=== PATIENT | female | born 1990 | race Caucasian/White ===

== ENCOUNTER 2019-04-29 09:16 | Emergency (ER) | payer SELFPAY ==
[2019-04-29 09:23] VITALS: BP 104/65; PULSE 65; RESP 16; TEMP 36.7; O2SAT 99
--- NOTE | 2019-04-29 09:31 | ED.URI ---
HPI - URI/Sore Throat General Chief Complaint: Upper Respiratory Infection Stated Complaint: Sore Throat Time Seen by Provider: 04/29/19 09:31 Source: patient and RN notes reviewed History of Present Illness HPI Narrative: Patient is a 28-year-old female presents the urgent care with complaints of sore throat for 1 day. Patient states she has a history of strep throat but has not had strep within the last 6 months. Patient has not used anything [id number] for her symptoms. Denies any known fever, chills, nausea, vomiting. No other acute complaints. No acute distress noted. Patient read the plan of care. Related Data Allergies Allergy/AdvReac Type Severity Reaction Status Date / Time No Known Allergies Allergy Mild Verified 03/28/19 13:07 Review of Systems Review of Systems: Narrative: CONSTITUTIONAL: Denies fever, chills, or sweats. EYES: Denies visual changes, redness, or discharge. ENT: Reports of sore throat CARDIOVASCULAR: Denies chest pain, palpitations, or edema. RESPIRATORY: Denies cough or dyspnea. GASTROINTESTINAL: Denies abdominal pain, nausea, vomiting, or diarrhea. GENITOURINARY: Denies dysuria or hematuria. SKIN: Denies rash or itching. MUSCULOSKELETAL: Denies back pain, joint pain, or myalgia. NEUROLOGIC: Denies headache, numbness, or weakness. All other systems reviewed are negative, except as documented in HPI. [facility] Social History Social History Gender identity (if verbalized by the patient): Female Comments At the time of my signature, I reviewed and agree with the nursing past medical, surgical, social, and family history. There is no relevant family history pertinent to the patient complaint. Exam Narrative: Exam Narrative: GENERAL: This is a well-nourished, well-developed patient, in no apparent distress. HEAD: normocephalic, atraumatic. EYES: PERRL. Sclera clear/white. Vision is grossly intact. EARS: External ears normal, auditory canals clear and without drainage, TMs normal without perforation. Hearing grossly intact. NOSE: External nose normal with no obvious nasal discharge, nares without redness, no rhinorrhea. THROAT: Mucous membranes moist, moderate erythema noted posterior oropharynx without exudate or ulceration. NECK: Neck supple, non-tender without lymphadenopathy CARDIOVASCULAR: Regular rate and rhythm without murmurs, gallops, or rubs. RESPIRATORY: Clear to auscultation. Breath sounds equal bilaterally. No wheezes, rales, or rhonchi. SKIN: warm, intact with no suspicious lesions or rash, good texture and turgor. NEURO: awake, alert, and oriented to person, place and time. There were no obvious focal neurologic abnormalities. EXTREMITIES: No clubbing, cyanosis, or edema. Course Vital Signs Vital signs: Vital Signs Temperature 98.0 F 04/29/19 09:23 Pulse Rate 65 04/29/19 09:23 Respiratory Rate 16 04/29/19 09:23 Blood Pressure 104/65 04/29/19 09:23 Pulse Oximetry 99 04/29/19 09:23 Temperature 98.0 F 04/29/19 09:23 Pulse Rate 65 04/29/19 09:23 Respiratory Rate 16 04/29/19 09:23 Blood Pressure 104/65 04/29/19 09:23 Pulse Oximetry 99 04/29/19 09:23 Reviewed MDM - URI/Sore Throat MDM Narrative Medical decision making narrative: Reviewed lab results with the patient. She is aware that strep swab was positive. Advised the patient to complete antibiotic regimen as prescribed. Make sure to eat and drink with medication. Increase fluids and rest. Use humidifier at night. Change toothbrush within 2 to 3 days. Use Tylenol/ibuprofen as needed for fever pain. Follow-up with PCP within 2 to 5 days or for worsening symptoms or failure to improve. Differential Diagnosis Differential diagnosis: Likely upper respiratory infection, otitis media, sinusitis, viral infection, bronchitis, influenza and pharyngitis Lab Data Attestation: I reviewed the patient's lab results. Critical Care Time Critical Care Time Critical Care Time: No Discharge Plan
== END 2019-04-29 09:40 | disposition home or self-care (01) ==
PROVIDERS: Emergency Provider Nurse Practitioner Family
DX: J02.0 Streptococcal pharyngitis (principal)
CPT/HCPCS: 87880; 99213; G0463

== ENCOUNTER 2020-10-02 15:04 | Emergency (ER) | payer SELFPAY ==
[2020-10-02 15:07] VITALS: BP 130/83; PULSE 106; RESP 18; TEMP 36.9; O2SAT 98
--- NOTE | 2020-10-02 15:17 | ECG_ITS ---
Measurements Intervals [place] Rate: 101 P: 65 MO: 118 QRS: 56 QRSD: 83 T: -3 QT: 346 QTc: 450 Interpretive Statements SINUS TACHYCARDIA WITH SHORT MO INTERVAL NONSPECIFIC ST & T-WAVE ABNORMALITY- ANTEROLAT/INF LEADS BORDERLINE ECG Electronically Signed On 10-02-2020 17:07:38 CDT by Bola Oneal D.O.
[2020-10-02 15:30] LABS: Basophils Absolute Auto 0.1 K/mm3 (0.0-0.1); Basophils Percent Auto 0.4 % (0.2-1.2); Eosinophils Percent Auto 0.3 % (0-4.4); Hematocrit 35.8 % (37.0-47.0); Hemoglobin 12.1 g/dL (12.0-15.0); Immature Granulocyte Absolute 0.03 K/mm3 (0.00-0.031); Immature Granulocyte Percent A 0.2 % (0-0.5); Lymphocytes Absolute Auto 1.68 K/mm3 (0.9-3.2); Lymphocytes Percent Auto 12.1 % (18.3-44.2); Mean Corpuscular HGB Conc 33.8 g/dl (32-36); Mean Corpuscular Hemoglobin 28.5 pg (26-34); Mean Corpuscular Volume 84.4 fl (80-100); Mean Platelet Volume 10.6 fl (7.4-10.4); Monocytes Absolute Auto 0.6 K/mm3 (0.1-0.6); Monocytes Percent Auto 4.5 % (2.6-8.5); Neutrophils Absolute Auto 11.5 K/mm3 (1.3-6.7); Neutrophils Percent Auto 82.5 % (45.5-73.1); Platelet Count Result 244 k/mm3 (150-375); Red Blood Count 4.24 M/mm3 (4.2-5.4); Red Cell Distribution Width 13.3 % (11.5-14.5); White Blood Count 13.9 K/mm3 (4.5-10.0)
--- NOTE | 2020-10-02 15:38 | ED.SYNCOPE ---
HPI - Syncope General Chief Complaint: Syncope Stated Complaint: syncope, possible seizure Time Seen by Provider: 10/02/20 15:18 History of Present Illness HPI narrative: [place] was at an outdoor street [place] this afternoon when she passed out. She did have brief light headedness before this. She struck her head on a trash can in the fall. She has a moderate headache at this time. Additionally she reports that she just found out she was . She had a normal period last month. Related Data Home Medications Medication Instructions Recorded Confirmed No Home Medications 10/02/20 10/02/20 Allergies Allergy/AdvReac Type Severity Reaction Status Date / Time No Known Allergies Allergy Mild Verified 10/02/20 15:09 Review of Systems Review of Systems: All systems reviewed & are unremarkable except as noted in HPI and below Constitutional: Constitutional: Denies chills and Denies fever(s) Eyes: Eyes: Reports no additional eye complaints Cardiovascular: Cardiovascular: Denies chest pain Respiratory: Respiratory: Denies dyspnea Gastrointestinal: Gastrointestinal: Denies abdominal pain, Denies diarrhea, Reports nausea and Denies vomiting Genitourinary: Genitourinary: Denies abnormal vaginal bleeding, Denies hematuria, Denies dysuria and Denies vaginal discharge Musculoskeletal: Musculoskeletal: Denies back pain Neurologic: Denies confusion, Reports syncope, Reports headache(s) and Denies weakness Hematologic/Lymphatic: Hematologic/Lymphatic: Denies easy bleeding and Denies easy bruising [facility] Social History Social History Smoking status: Never smoker Gender identity (if verbalized by the patient): Female Exam Const: General: healthy appearing, no acute distress and alert Orientation/consciousness: patient oriented x3 HENMT: Head: normal to inspection Eyes: Pupils: Equal, round and reactive pupils present Neck: Neck: normal visual inspection and no lymphadenopathy Chest: Chest palpation & inspection: no tenderness Resp: Effort & Inspection: normal respiratory effort Auscultation: clear to auscultation bilaterally, no rales, no rhonchi and no wheezes Cardio: Jugular venous distension: no JVD Rate: regular rate Rhythm: regular rhythm Heart sounds: no murmurs GI: Inspection: non-distended GI Palp: Yes Soft to palpation and No Tenderness to palpation present (GI) Skin: General skin exam: normal color Neuro: General: patient oriented x3 and moves all extremities Speech: normal speech Extrem: General: no edema Psych: Appearance: well kempt Affect: normal affect Course Vital Signs Vital signs: Vital Signs Temperature 36.9 C 10/02/20 15:07 Pulse Rate 106 H 10/02/20 15:07 Respiratory Rate 18 10/02/20 15:07 Blood Pressure 130/83 10/02/20 15:07 Pulse Oximetry 98 10/02/20 15:07 Temperature 36.9 C 10/02/20 15:07 Pulse Rate 108 H 10/02/20 16:02 Respiratory Rate 18 10/02/20 15:07 Blood Pressure 134/85 10/02/20 16:02 Pulse Oximetry 98 10/02/20 15:07 Procedures Other Procedure Procedure 1: Other Procedure: Bedside US Grossly normal IUP Appears significantly older than provided dates FHR 152 MDM - Syncope MDM Narrative Medical decision making narrative: Normal IUP. Dr. Camarillo will see her in follow-up. Orthostatics mildly positive. Likely dehydrated. Differential Diagnosis Differential diagnosis: Likely syncope due to orthostatic hypotension, vasovagal syncope and dehydration Medical Records Attestation: I reviewed the patient's medical records. Lab Data Attestation: I reviewed the patient's lab results. Result diagrams: 10/02/20 15:23 10/02/20 15:23 Labs: Lab Results 10/02/20 10/02/20 Range/Units 15:23 15:23 WBC 13.9 H (4.5-10.0) K/mm3 RBC 4.24 (4.2-5.4) M/mm3 Hgb 12.1 (12.0-15.0) g/dL Hct 35.8 L (37.0-47.0) % MCV 84.4 (80-100)
[2020-10-02 15:40] LABS: Anion Gap 9 mmol/L (8-16); Blood Urea Nitrogen 8 mg/dL (7-17); Calcium 8.8 mg/dL (8.4-10.2); Carbon Dioxide 20 mmol/L (22-30); Chloride 107 mmol/L (98-107); Estimated CRCL calculation 94 ml/min; Estimated Glomerular Filt Rate > 60; Glucose 119 mg/dL (65-110); Potassium 3.8 mmol/L (3.4-5.0); Sodium 136 mmol/L (137-145)
[2020-10-02] MEDS: ACETAMINOPHEN 500 MG TABLET 1000 MG PO (15:55)
[2020-10-02 16:01] VITALS: BP 119/77; BP 125/72; PULSE 106; PULSE 91
[2020-10-02 16:02] VITALS: BP 134/85; PULSE 108
[2020-10-02] MEDS: SODIUM CHLORIDE 0.9% IV 1,000 ML 999 ML IV CONT (16:30)
[2020-10-02 17:57] VITALS: BP 115/77; PULSE 75; RESP 16; O2SAT 100
== END 2020-10-02 17:59 | disposition home or self-care (01) ==
PROVIDERS: Emergency Medicine; Emergency Provider Emergency Medicine
DX: O26.891 Other specified pregnancy related conditions, first trimester (principal); R55 Syncope and collapse; R00.0 Tachycardia, unspecified; R94.31 Abnormal electrocardiogram [ECG] [EKG]; Z3A.00 Weeks of gestation of pregnancy not specified
CPT/HCPCS: 36415; 80048; 81025; 85025; 93005; 96360; 99284; A9270; J7030

== ENCOUNTER 2021-03-15 12:03 | Outpatient (RCR) | payer MEDICAID, SELFPAY ==
[2021-03-17] MEDS: RHO(D) IMMUNE GLOBULIN 300 MCG/2 ML SYRINGE IM (09:06)
== END 2021-06-13 09:10 | disposition home or self-care (01) ==
LOC: ANHLAB 12:03
PROVIDERS: Visit Provider Obstetrics & Gynecology
DX: Z29.13 Encounter for prophylactic Rho(D) immune globulin (principal); O36.0130 Maternal care for anti-D [Rh] antibodies, third trimester, not applicable or unspecified; Z3A.00 Weeks of gestation of pregnancy not specified
CPT/HCPCS: 36415; 85461; 90384; 96372; J2790

== ENCOUNTER 2021-04-09 16:15 | Outpatient (CLI) | payer MEDICAID, SELFPAY ==
[2021-04-09 16:40] LABS: Basophils Absolute Auto 0.1 K/mm3 (0.0-0.1); Basophils Percent Auto 0.5 % (0.2-1.2); Eosinophils Absolute Auto 0.1 K/mm3 (0-0.3); Eosinophils Percent Auto 0.3 % (0-4.4); Hematocrit 30.5 % (37.0-47.0); Hemoglobin 9.8 g/dL (12.0-15.0); Immature Granulocyte Absolute 0.08 K/mm3 (0.00-0.031); Immature Granulocyte Percent A 0.5 % (0-0.5); Lymphocytes Absolute Auto 2.01 K/mm3 (0.9-3.2); Mean Corpuscular HGB Conc 32.1 g/dl (32-36); Mean Corpuscular Volume 80.9 fl (80-100); Mean Platelet Volume 11.4 fl (7.4-10.4); Monocytes Absolute Auto 0.8 K/mm3 (0.1-0.6); Monocytes Percent Auto 5.4 % (2.6-8.5); Neutrophils Absolute Auto 12.4 K/mm3 (1.3-6.7); Neutrophils Percent Auto 80.3 % (45.5-73.1); Platelet Count Result 263 k/mm3 (150-375); Red Blood Count 3.77 M/mm3 (4.2-5.4); Red Cell Distribution Width 14.6 % (11.5-14.5); White Blood Count 15.5 K/mm3 (4.5-10.0)
[2021-04-11 06:08] LABS: Rapid Plasma Reagin Non-Reactive (NonReactive)
== END 2021-04-09 16:16 | disposition home or self-care (01) ==
LOC: ANHOBOP 16:16
PROVIDERS: Visit Provider Obstetrics & Gynecology
DX: Z34.90 Encounter for supervision of normal pregnancy, unspecified, unspecified trimester (principal); Z3A.00 Weeks of gestation of pregnancy not specified
CPT/HCPCS: 36415; 85025; 86592; 86850; 86880; 86900; 86901

== ENCOUNTER 2021-04-11 09:55 | Inpatient (IN) | payer MEDICAID, SELFPAY ==
--- NOTE | 2021-04-09 16:08 | PC.NURSE ---
Verified with OR schedule and patient--C/S on 04/11/21 at 1200 Pre-op labs drawn on 04/09/21
[2021-04-11] VITALS (54 sets, daily range): BP systolic 100–127; BP diastolic 46–87; PULSE 57–110; RESP 11–18; TEMP 36.3–37.1; O2SAT 94–100; BMI 34.7
[2021-04-11] MEDS: LACTATED RINGERS 1,000 ML 125 ML IV CONT ×3 (10:58→13:00)
--- NOTE | 2021-04-11 11:55 | WPDANESEPPF ---
Anes - Initial Pre Proc Eval Procedure: Operation Date: 04/11/21 12:00 Proposed Procedures p Repeat Section - Martha Camarillo MD Date/Time: 04/11/21 11:55 Surgeon: Martha Camarillo MD Pre Op Diagnosis: c/s Patient Data Age: 30 Gender: F Height: 1.65 m Weight: 94.5 kg Last Vital Signs Pulse 96 04/11/21 11:00 BP 111/76 04/11/21 11:00 Allergies Allergy/AdvReac Type Severity Reaction Status Date / Time No Known Allergies Allergy Mild Verified 10/02/20 15:09 Home Medications Medication Instructions Recorded Confirmed Type No Home Medications 10/02/20 10/02/20 History Patient hx anesthesia problems: none and other (scoliosis) Family hx anesthesia problems: none Results Review: All pre-operative results and documents have been reviewed as part of the pre-operative evaluation. [facility] Family History Family History Son Autism Mother Epilepsy posttraumatic Grandparent Chronic obstructive pulmonary disease Social History Social History Years smoked: 2 Smoking status: Current every day smoker Tobacco type: cigarettes Second hand tobacco smoke exposure: Yes Substance use: never Gender identity (if verbalized by the patient): Female Spiritual care concerns: No Anes - Eval Final PreProcedure Day of Procedure 04/11/21 11:55 Patient weight: obese Heart: regular rate and rhythm Lungs: decreased breath sounds Airway: Mallampati scale class II Neurological: alert and oriented Last oral intake: >/= 8 hours ASA classification: II Emergent: no Anesthetic plan: proceed Anesthesia type and monitoring: regional spinal and standard monitoring Results Review: All pre-operative results and documents have been reviewed as part of the pre-operative evaluation. Informed Consent: The patient's anesthetic plan and its attendant risks and benefits were discussed with the patient/family/POA. Questions were solicited and answers provided to the satisfaction of the patient/family/POA.
--- NOTE | 2021-04-11 11:56 | WPDHPUPDATE1 ---
History and Physical Update Update Date/Time: 04/11/21 11:56 History and Physical has been reviewed, including an updated exam of the patient. There are NO changes in the patient's condition. Risks, benefits, and alternatives have been discussed and questions answered. Patient agrees to proceed with procedure.
--- NOTE | 2021-04-11 11:56 | PM.IMHP ---
H&P: [facility] History of Present Illness Date/Time: 04/11/21 11:56 this patient is a multiparous 30-year-old female who presents for delivery. We have agreed to perform delivery due to 4th degree laceration in her last vaginal . She has no complaints. She denies any loss of fluid, vaginal bleeding, contractions. She reports good movement. She denies any nausea, vomiting, fever, chills. She denies any chest pain or shortness of breath. Chief Complaint: Term , previous 4th degree laceration of the vagina. Review of Systems Review of Systems: All systems reviewed & are unremarkable except as noted in HPI and below Constitutional: Constitutional: Denies chills, Denies fatigue, Denies fever(s) and Denies weakness Eyes: Eyes: Denies blurry vision, Denies change in vision, Denies loss of peripheral vision, Denies loss of vision, Denies other visual disturbances and Denies eye pain ENT: Denies vertigo, Denies dizziness, Denies hearing loss, Denies mouth pain, Denies nasal obstruction, Denies neck mass and Denies neck pain Cardiovascular: Cardiovascular: Denies chest pain, Denies diaphoresis, Denies syncope, Denies leg edema and Denies dyspnea Respiratory: Respiratory: Denies chest congestion, Denies cough, Denies hemoptysis, Denies dyspnea and Denies wheezing Gastrointestinal: Gastrointestinal: Denies abdominal pain, Denies constipation, Denies diarrhea, Denies nausea and Denies vomiting Genitourinary: Genitourinary: Denies hematuria, Denies change in libido, Denies nocturia, Denies genital lesions, Denies flank pain and Denies urinary urgency Musculoskeletal: Musculoskeletal: Denies abnormal gait, Denies back pain, Denies myalgias, Denies arthralgias, Denies joint swelling, Denies muscle weakness and Denies neck pain Integumentary/Breasts: Skin/Breast: Denies swelling, Denies breast pain, Denies breast mass, Denies dry skin, Denies nipple discharge, Denies unusual bruising and Denies jaundice Neurologic: Denies Neuro-related abnormal movements, Denies Abnormal speech present, Denies abnormal gait, Denies behavioral changes, Denies confusion, Denies vertigo, Denies dizziness, Denies syncope, Denies loss of vision, Denies memory loss, Denies convulsions and Denies weakness Psychiatric: Psychiatric: Denies abnormal sleep pattern, Denies behavioral changes, Denies change in libido, Denies confusion, Denies depression, Denies anhedonia and Denies memory loss Endocrine: Endocrine: Reports no additional endocrine complaints, Denies change in libido and Denies fatigue Hematologic/Lymphatic: Hematologic/Lymphatic: Reports no additional hematologic/lymphatic complaints Allergic/Immunologic: Allergic/Immunologic: Reports no additional allergic/immunologic complaints and Denies wheezing PMFSH Family History Family History Son Autism Mother Epilepsy posttraumatic Grandparent Chronic obstructive pulmonary disease Social History Social History Years smoked: 2 Smoking status: Current every day smoker Tobacco type: cigarettes Second hand tobacco smoke exposure: Yes Substance use: never Gender identity (if verbalized by the patient): Female Spiritual care concerns: No Meds Home Medications and Allergies Home Medications Medication Instructions Recorded Confirmed Type No Home Medications 10/02/20 10/02/20 History Allergies Allergy/AdvReac Type Severity Reaction Status Date / Time No Known Allergies Allergy Mild Verified 10/02/20 15:09 Vital Signs Vital Signs - 24 hr 04/11/21 10:44 04/11/21 10:45 04/11/21 11:00 Pulse Rate 96 110 H 96 Blood Pressure 119/78 127/87 111/76 Exam Const: General: cooperative, healthy appearing, comfortable and no acute distress; No confusion Orientation/consciousness: oriented to person, oriented to place, oriented to ti
[2021-04-11] MEDS: ceFAZolin 2 GM/D5W 50 ML 2 GM/50 ML BAG IVPB (12:04)
[2021-04-11] MEDS: KETOROLAC 30 MG/ML VIAL (*BKC) IV PUSH (12:48)
--- NOTE | 2021-04-11 12:50 | P.OP_ITS ---
Procedure Note - Detailed Date of Procedure 04/11/21 Pre-op Diagnosis Previous 4th degree laceration during vaginal , term gestation Post-op Diagnosis same Procedure Performed Low-transverse section Surgeon Martha Camarillo MD Anesthesia spinal Findings Normal gestational maternal anatomy, average size , normal Apgars. Description of Procedure The patient was taken the operating room. She was prepped and draped in dorsal supine position with a leftward tilt. This was done after spinal anesthetic was applied. A low-transverse skin incision was made and carried down till of the fascia with the knife. The fascial incision was made with the knife. The fascial incision was extended laterally with Hernandez scissors. The fascia was tented upward superiorly and inferiorly the rectus muscles were dissected off bluntly. The rectus muscles were the midline. The preperitoneal fat and peritoneum were dissected open bluntly at the superior aspect of the rectus muscles. The peritoneal incision was extended superior and in ferior with good position of bladder. The uterine incision was made with a scalpel down to the level of the amniotic cavity. The amniotic cavity was entered bluntly. The infant was delivered. The cord was clamped and cut and the was handed off to waiting pediatric staff. Cord bloods were obtained. The placenta was removed manually. The uterus was exteriorized. The uterus was cleared of all clots, debris and membranes. The uterus was closed in 0 Vicryl running lock fashion. An imbricating over a was placed along the incision line as well. The uterus was returned to the abdomen. The gutters were cleared of all clots and debris. The fascia was closed with 0 Vicryl running fashion. The subcutaneous tissue was irrigated pinpoint bleeders were cauterized. The skin was closed with subcuticular absorbable brittney. The skin incision line was covered with glue. The patient tolerated the procedure well. She has taken recovery room in stable condition. Sponge lap and needle counts were correct x2. Complications No immediate complications Condition stable Disposition PACU
[2021-04-11] MEDS: OXYTOCIN 30 UNITS/NS 500 ML 30 UNITS/500 ML BAG 125 UNITS IV CONT (13:49)
[2021-04-11 14:33] LABS: Amphetamine Screen Urine Negative (Negative); Barbiturate Screen Urine Negative (Negative); Benzodiazepines Screen Urine Negative (Negative); Cannabinoid Screen Urine Positive (Negative); Cocaine Screen Urine Negative (Negative); Methadone Screen Urine Negative (Negative); Opiate Screen Urine Negative (Negative); Phencyclidine Screen Urine Negative (Negative)
--- NOTE | 2021-04-11 15:33 | PC.NURSE ---
Patient transferred to post room #285 via stretcher. Support person present. Oriented to unit, room, information board, rooming in, admission packet and security measures. Patient verbalizes understanding.
[2021-04-11] MEDS: LORATADINE 10 MG TABLET PO (17:37)
[2021-04-11] MEDS: DOCUSATE SODIUM 100 MG CAPSULE PO (17:37)
[2021-04-11] MEDS: DEXTROSE 5%/0.45% SOD CHL 1,000 ML 125 ML IV CONT (17:38)
[2021-04-12 03:15] VITALS: BP 104/68; PULSE 70; RESP 16; TEMP 36.7; O2SAT 100
[2021-04-12] MEDS: IBUPROFEN 600 MG TABLET PO ×3 (04:42→23:02)
[2021-04-12 05:34] LABS: Basophils Absolute Auto 0.1 K/mm3 (0.0-0.1); Basophils Percent Auto 0.4 % (0.2-1.2); Eosinophils Percent Auto 0.2 % (0-4.4); Hematocrit 25.2 % (37.0-47.0); Hemoglobin 7.9 g/dL (12.0-15.0); Immature Granulocyte Absolute 0.12 K/mm3 (0.00-0.031); Immature Granulocyte Percent A 0.7 % (0-0.5); Lymphocytes Percent Auto 13.5 % (18.3-44.2); Mean Corpuscular HGB Conc 31.3 g/dl (32-36); Mean Corpuscular Hemoglobin 25.8 pg (26-34); Mean Corpuscular Volume 82.4 fl (80-100); Mean Platelet Volume 12.2 fl (7.4-10.4); Monocytes Absolute Auto 1.8 K/mm3 (0.1-0.6); Monocytes Percent Auto 9.8 % (2.6-8.5); Neutrophils Absolute Auto 13.9 K/mm3 (1.3-6.7); Neutrophils Percent Auto 75.4 % (45.5-73.1); Platelet Count Result 251 k/mm3 (150-375); Red Blood Count 3.06 M/mm3 (4.2-5.4); Red Cell Distribution Width 14.6 % (11.5-14.5); White Blood Count 18.5 K/mm3 (4.5-10.0)
[2021-04-12 07:20] VITALS: BP 114/80; PULSE 75; RESP 16; TEMP 36.6; O2SAT 100
--- NOTE | 2021-04-12 07:57 | PM.OBPNVD ---
OB - PN: Subj Subjective Date/time seen: 04/12/21 07:57 Patient comments: no complaints, pain well controlled, tolerating diet and flatus present OB - PN: Obj Data Labs CBC & Chem 7: 04/12/21 03:27 Labs: Laboratory Results - last 24 hr 04/11/21 04/12/21 14:05 03:27 WBC 18.5 H RBC 3.06 L Hgb 7.9 L Hct 25.2 L MCV 82.4 MCH 25.8 L MCHC 31.3 L RDW 14.6 H Plt Count 251 MPV 12.2 H Immature Gran % (Auto) 0.7 H Neut % (Auto) 75.4 H Lymph % (Auto) 13.5 L [place] % (Auto) 9.8 H Eos % (Auto) 0.2 Baso % (Auto) 0.4 Lymph # (Auto) 2.50 [place] # (Auto) 1.8 H Eos # (Auto) 0.0 Baso # (Auto) 0.1 Abs Immat Gran (auto) 0.12 H Absolute Neuts (auto) 13.9 H Absolute Nucleated RBC 0.0 Nucleated RBC % 0.0 Urine Opiates Screen Negative Urine Methadone Screen Negative Ur Barbiturates Screen Negative Ur Phencyclidine Scrn Negative Ur Amphetamine Screen Negative U Benzodiazepines Scrn Negative Urine Cocaine Screen Negative U Cannabinoids Screen Positive A OB - PN A/P Plan day: 1 Comments: Post Op LTCS - no problems, routine recovery Time Spent With Patient Time: Total time spent is greater than 50% in coordination of care (as documented) at patient's floor/unit and/or counseling patient: Exam Const: General: cooperative, healthy appearing, comfortable and no acute distress Resp: Auscultation: no crackles, no rales, no rhonchi and no wheezes Cardio: Rhythm: regular rhythm Heart sounds: no click and no murmurs GI: Inspection: non-distended Auscultation: normal bowel sounds Extrem: General: normal to inspection, no pedal edema and no calf tenderness
[2021-04-12] MEDS: POLYSACCHARIDE IRON COMPLEX 150 MG CAPSULE PO ×2 (09:07→14:59)
[2021-04-12] MEDS: DOCUSATE SODIUM 100 MG CAPSULE PO ×2 (09:07→14:59)
[2021-04-12] MEDS: MULTIVIT/MIN/PREN/FOL AC/IRON TABLET 1 TAB PO (09:07)
[2021-04-12] MEDS: HYDROcodone/acetaminophen (*CRX) 5-325 MG TABLET 1 TAB PO ×3 (09:07→23:03)
[2021-04-12 11:39] VITALS: BP 120/61; PULSE 86; RESP 16; TEMP 36.9; O2SAT 100
[2021-04-12] MEDS: RHO(D) IMMUNE GLOBULIN 300 MCG/2 ML SYRINGE IM (12:47)
--- NOTE | 2021-04-12 13:52 | PCCCNOTE ---
Addendum entered by VIVI Haro 04/12/21 14:30: Recvd email from [facility] that states: Your information has been reviewed and assessed by a Account Development Manager and was also approved by a car installations supervisor. The information you provided did not meet one of the criteria for an investigation (eligible victim, eligible perpetrator, eligible event, or jurisdiction). The information as been documented and will be kept on file. Should you learn of further information or have additional concerns, please feel free to contact us. Original Note: Care Coordination: Recvd notification that pt. tested positive for THC upon admission. Baby does not have any meconium or UDS ordered by the doctor. Pt. reports using THC during to help with nausea and appetite. Met with pt. and pt's mother Trisha at bedside. Pt. reports she and baby girl will be returning home where they live with Trisha, and pt's brother and sister, as well as pt's two children 5 and 8 year olds. Pt. reports Trisha is very supportive. Pt. reports having all necessary supplies for baby and in process of establishing with [facility]. Pt. denies prior involvement with DCFS. resources provided to pt. DCFS Report filed online #[id number]. LESLIE Callejas updated.
--- NOTE | 2021-04-12 14:02 | PC.NURSE ---
1312 - Introductions made and mother states she is able to breastfeed her without any discomfort independently. Reviewed feeding cues, frequencies, duration of feedings, feeding elimination flow sheet, nipple care and signs of adequate intake. Instructed mother to call out for RN assistance if she is unable to latch for feeding or she has discomfort with nursing. Mother voiced understanding watching for feeding cues for responsive feeding and to stimulate infant to frequent 8-12 times in 24 hours. Reported to primary RN.
[2021-04-12 19:40] VITALS: BP 139/72; PULSE 97; RESP 16; TEMP 36.3
--- NOTE | 2021-04-13 07:33 | PM.OBPNVD ---
OB - PN: Subj Subjective Date/time seen: 04/13/21 07:33 Patient comments: no complaints baby status: doing well OB - PN: Obj Data Labs CBC & Chem 7: 04/12/21 03:27 Labs: Laboratory Results - last 24 hr 04/12/21 03:27 Blood Type A Negative Antibody Screen Positive Antibody Identification Passive Due to RH Imm Glob Antigen Identification TNP RHONDA, IgG Interpret Not Performed RHONDA, Poly Interpret Negative RHONDA, Complement Interp Not Performed Screen Negative Baby's Blood Type O pos Baby's RHONDA Positive Doses of RhIg Required 1 OB - PN A/P Plan day: 2 Plan: routine care and discharge home Time Spent With Patient Time: Total time spent is greater than 50% in coordination of care (as documented) at patient's floor/unit and/or counseling patient: Review of Systems Review of Systems: All systems reviewed & are unremarkable except as noted in HPI and below Exam Const: General: cooperative, healthy appearing and comfortable
--- NOTE | 2021-04-13 07:36 | PM.OBDSVD ---
DS: Admitting Diagnosis Discharge Date Admitting Diagnosis section OB - DS: Summary OB Procedures : None OB Procedures Intrapartum: OB Procedures: : None Peripartum Data Procedures: Procedures Operation Date: 04/11/21 12:00 Actual Procedure Side Surgeon p Section Martha Camarillo MD Time Spent with Patient Time attestation: Total time spent providing and/or coordinating discharge services: DS: Data Data Completed and Pending Labs on day of discharge: Labs from last 24 hours 04/12/21 03:27 Blood Type A Negative Antibody Screen Positive Antibody Identification Passive Due to RH Imm Glob Antigen Identification TNP RHONDA, IgG Interpret Not Performed RHONDA, Poly Interpret Negative RHONDA, Complement Interp Not Performed Screen Negative Baby's Blood Type O pos Baby's RHONDA Positive Doses of RhIg Required 1 Discharge Plan Discharge Attending physician on discharge: Martha Camarillo Discharging Clinician: Yolette Moran Patient Disposition: Home, Self-Care Activity: pelvic rest Diet: regular Patient Instructions: Antibiotic Form Stand Alone Forms: General Discharge Information Follow-up/Referrals: Martha Camarillo MD [Physician] - 1 Week Discharge Medications: New hydrocodone-acetaminophen 5-325 mg Tablet 1 tablet PO Q3H PRN (Reason: Moderate Pain (4-6)) Qty: 30 RF: 0 No Action No Home Medications RF: 0 Date of admission: 04/11/21 09:55 Primary Care Provider: PHYSICIAN,SURGICAL SERVICES MANAGER Admitting Provider: Martha Camarillo Attending physician on admission: Martha Camarillo Condition: Stable
[2021-04-13 09:20] VITALS: BP 140/83; PULSE 98; RESP 18; TEMP 37.1; O2SAT 98
[2021-04-13] MEDS: POLYSACCHARIDE IRON COMPLEX 150 MG CAPSULE PO (09:47)
[2021-04-13] MEDS: MULTIVIT/MIN/PREN/FOL AC/IRON TABLET 1 TAB PO (09:47)
[2021-04-13] MEDS: IBUPROFEN 600 MG TABLET PO (09:47)
[2021-04-13] MEDS: HYDROcodone/acetaminophen (*CRX) 5-325 MG TABLET 1 TAB PO (09:47)
[2021-04-13] MEDS: SIMETHICONE 80 MG TAB.CHEW PO (09:48)
[2021-04-13] MEDS: TETANUS,DIPHTHERIA,AC PERTUSSIS ADULT (0.5 ML) BOOSTRIX IM (09:48)
[2021-04-13] MEDS: DOCUSATE SODIUM 100 MG CAPSULE PO (09:50)
[2021-04-15 09:47] VITALS: BP 131/82; PULSE 94; RESP 20; TEMP 36.8; O2SAT 100
== END 2021-04-13 12:12 | disposition home or self-care (01) | DRG 540 ==
LOC: ANHLDR 09:57 → ANHOB2 15:39
PROVIDERS: Admitting Provider Obstetrics & Gynecology; Visit Provider Obstetrics & Gynecology
PROC: 10D00Z1 Extraction of Products of Conception, Low, Open Approach (ICD-10-PCS; CPT 59514; principal; 2021-04-11 12:00)
DX: O99.892 Other specified diseases and conditions complicating childbirth (principal); Z37.0 Single live birth; Z3A.39 39 weeks gestation of pregnancy; Z87.59 Personal history of other complications of pregnancy, childbirth and the puerperium; O69.81X0 Labor and delivery complicated by cord around neck, without compression, not applicable or unspecified; O99.324 Drug use complicating childbirth; F12.90 Cannabis use, unspecified, uncomplicated; O99.334 Smoking (tobacco) complicating childbirth; F17.210 Nicotine dependence, cigarettes, uncomplicated
CPT/HCPCS: 36415; 80307; 85025; 85461; 86880; 90384; 90715; A9270; J0131; J0690; J1100; J1885; J2274; J2405; J2590; J2790; J7120

== ENCOUNTER 2021-10-27 16:04 | Emergency (ER) | payer OTHER, SELFPAY ==
[2021-10-27 16:11] VITALS: BP 123/83; PULSE 82; RESP 16; TEMP 36.7; O2SAT 100
--- NOTE | 2021-10-27 16:45 | ED.FEMALEGU ---
HPI - Female Genitourinary General Chief complaint: Urogenital-Female Stated complaint: std testing Time Seen by Provider: 10/27/21 16:45 Source: patient and RN notes reviewed Mode of arrival: ambulatory Limitations: no limitations History of Present Illness HPI Narrative: 30-year-old female presented for concern of STD. She states she has had burning with urination and mild itching for 2 days. Endorses these are the same symptoms she had when she was diagnosed with chlamydia which she received from her her current partner and reports questionable infidelity. At that time she was treated for chlamydia during . She denies vaginal discharge, irregular bleeding, abdominal pain, nausea, vomiting, diarrhea, fevers or chills. LMP 4 weeks ago, states she took plan B after last intercourse. Related Data Allergies Allergy/AdvReac Type Severity Reaction Status Date / Time No Known Allergies Allergy Mild Verified 10/02/20 15:09 Review of Systems Review of Systems: CONSTITUTIONAL: Denies body aches, fever, chills, or sweats. CARDIOVASCULAR: Denies chest pain, palpitations, or edema. RESPIRATORY: Denies cough or dyspnea. GASTROINTESTINAL: Denies abdominal pain, nausea, vomiting, or diarrhea. GENITOURINARY: Reports dysuria, denies frequency, urgency, hematuria, flank pain SKIN: Denies rash, or wounds. MUSCULOSKELETAL: Denies back pain or myalgia. [facility] Family History Family History Son Autism Mother Epilepsy posttraumatic Grandparent Chronic obstructive pulmonary disease Social History Social History Years smoked: 2 Smoking status: Current every day smoker Tobacco type: cigarettes Second hand tobacco smoke exposure: Yes Substance use: never Gender identity (if verbalized by the patient): Female Spiritual care concerns: No Comments At time of signature, I have reviewed and agree with nursing past medical, surgical, social and family history unless otherwise noted. Please see nursing chart for further information. There is no relevant family history pertinent to the presenting complaint Exam Narrative: GENERAL: Well-appearing ENT: Mucous membranes pink and moist. CHEST: No respiratory distress. Clear to auscultation. HEART: Regular rate and rhythm. ABDOMEN: Soft, nontender, nondistended, normal active bowel sounds. No CVA tenderness SKIN: Warm, dry, no rash. NEURO: No focal deficits. Alert and oriented x3. Gait steady. PSYCH: Normal affect. Course Course Emergency Course: Patient is aware of diagnosis, understands and agrees to treatment plan. Anticipatory guidance given. Patient agrees to follow-up as directed and is aware of reasons to seek care at the emergency department. Portions of this record may have been created with voice recognition software Level of Care: Express Care Visit Vital Signs Vital signs: Vital Signs Temperature 98.0 F 10/27/21 16:11 Pulse Rate 82 10/27/21 16:11 Respiratory Rate 16 10/27/21 16:11 Blood Pressure 123/83 10/27/21 16:11 Pulse Oximetry 100 10/27/21 16:11 Oxygen Delivery Room Air 10/27/21 16:11 Temperature 98.0 F 10/27/21 16:11 Pulse Rate 82 10/27/21 16:11 Respiratory Rate 16 10/27/21 16:11 Blood Pressure 123/83 10/27/21 16:11 Pulse Oximetry 100 10/27/21 16:11 Oxygen Delivery Room Air 10/27/21 16:11 Reviewed MDM - Female Genitourinary MDM Narrative Medical decision making narrative: Patient presenting with concern for STD. Urine specimen collected for GC, chlamydia, trich. Will wait to treat for UTI until culture results. Preg neg. Informed Pt will be contacted when std results become available. Discussed with patient that it takes up to 7 days for results of cultures to be released and explained that we may treat empirically at this time. Agreeable to treatment at this time. I have
[2021-10-27] MEDS: cefTRIAXone 500 MG, LIDOCAINE HCL 1% LOCAL INJ 1 ML IM (17:15)
== END 2021-10-27 17:33 | disposition home or self-care (01) ==
PROVIDERS: Emergency Provider Nurse Practitioner Family
DX: Z20.2 Contact with and (suspected) exposure to infections with a predominantly sexual mode of transmission (principal); F17.210 Nicotine dependence, cigarettes, uncomplicated
CPT/HCPCS: 81003; 81025; 87086; 87088; 87491; 87591; 87661; 96372; 99214; G0463; J0696